=== PATIENT | female | born 1965 | race Caucasian/White ===

== ENCOUNTER 2017-12-13 14:38 | Outpatient (CLI) | payer OTHER ==
[2017-12-13 16:11] LABS: eGFR (Non-African) > 60
== END 2017-12-13 14:40 ==
LOC: LAB 14:38
PROVIDERS: ATTEND Family Medicine
DX: Z00.00 Encounter for general adult medical examination without abnormal findings (principal)
CPT/HCPCS: 80053; 80061

== ENCOUNTER 2017-12-14 16:11 | Outpatient (CLI) | payer OTHER | END 2017-12-14 16:12 | LOC: LABRHC 16:11 | PROVIDERS: ATTEND Family Medicine | DX: Z12.4 Encounter for screening for malignant neoplasm of cervix (principal) | CPT/HCPCS: 88148; G0143 ==